=== PATIENT | male | born 1935 | race Caucasian/White ===

== ENCOUNTER 2018-08-29 08:55 | Inpatient (IN) | payer MEDICARE, BC ==
[~2018-08-29] VITALS: Ht 172.7 cm; Wt 65.8 kg
[2018-08-29] MEDS ORDERED: ALBUTEROL 0.5% (NEB) 2.5 MG/0.5 ML AMP INH STA (09:14)
[2018-08-29] MEDS ORDERED: IPRATROPIUM (NEB) 0.5 MG/2.5 ML AMP INH STA ×2 (09:14→11:05)
[2018-08-29] MEDS ORDERED: SOD CHLORIDE 0.9% 500 ML IV STA (09:14)
--- NOTE | 2018-08-29 09:23 | ERD ---
ER Documentation Chief Complaint Chief Complaint SOB/WEAKNESS X 1 WEEK HPI This is a very pleasant 83-year-old male with a past medical history of cardia myopathy. The patient for the past week has felt short of breath. The shortne ss of breath is present at rest and worse when he lies supine. He has been experiencing paroxysmal nocturnal dyspnea. He has had a nonproductive cough. He denies any swelling of his lower extremities. The patient has a defibrillator and is on Coumadin. He denies any hemoptysis hematemesis or me lanotic stools. He has no chest pain. He denies any recent travel or prolonged immobilization. He denies any recent hospitalizations. He also indicates for the past 2 weeks he has had multiple episodes of loose watery stools throughout the day that is worse after he eats. He denies any abdominal pain or cramping. ROS All systems reviewed and are negative except as per history of present illness. Medications Home Meds Reported Medications Losartan-Hydrochlorothiazide (Losartan-HCTZ) Unknown Strength Tab, PO DAILY, TAB PT ONLY KNOW THE HCTZ IS 12.5 BUT NOT WHAT THE MG OF LOSARTAN IS 08/29/18 Magnesium Oxide (Magnesium) 250 Mg Tablet, 250 MG PO DAILY, TAB 08/29/18 Multivit-Min/FA/Lycopen/Lutein (Centrum Silver Men Tablet) 1 Each Tablet, 1 EACH PO DAILY, TAB 08/29/18 Vitamin B Complex (Super B-50 Complex) 1 Each Capsule, 1 EACH PO DAILY, CAP 08/29/18 Levothyroxine Sodium* (Levoxyl*) 75 Mcg Tablet, 75 MCG PO BEFORE BREAKFAST, #30 TAB 08/29/18 Warfarin Sodium* (Coumadin*) 2 Mg Tablet, 2 MG PO MON,FRI, TAB 08/29/18 Warfarin Sodium* (Coumadin*) 1 Mg Tablet, 1 MG PO SUN,TUE,WED,THUR,SAT, TAB 08/29/18 Lovastatin (Lovastatin) 40 Mg Tablet, 40 MG PO HS, TAB 08/29/18 Allopurinol* (Allopurinol*) 300 Mg Tablet, 300 MG PO DAILY, TAB 08/29/18 Potassium Chloride* (K-Dur*) 10 Meq Tab.prt.sr, 10 MEQ PO DAILY, TAB 08/29/18 Carvedilol* (Carvedilol*) 25 Mg Tablet, 25 MG PO TID, #60 TAB 08/29/18 Allergies Allergies: Coded Allergies: No Known Allergy (Verified , 08/29/18) Physical Exam Vitals Vital Signs Date Temp Pulse Resp B/P (MAP) Pulse Ox O2 O2 Flow FiO2 Time Delivery Rate 08/29/18 98 20 97 21 11:24 08/29/18 95 20 98 21 09:44 08/29/18 98.1 99 22 127/62 99 08:58 (83) Physical Exam Constitutional:Well-developed. Well-nourished. HEENT:Normocephalic. Atraumatic.Pupils were equal round reactive to light. Moist mucous membranes.No tonsillar exudates. Neck: No nuchal rigidity. No lymphadenopathy. No posterior cervical spine tenderness or step-offs. Respiratory: Using accessory muscles of respiration.Lungs were clear to auscultation bilaterally. Bilateral rhonchi. No rales. No wheezing. Cardiovascular: Regular rate regular rhythm.No murmurs. No rubs were appreciated.S1, S2 normal. Distal pulses are palpable 2+ bilaterally. GI: Abdomen was soft. Nontender. Non Distended. No pulsatile abdominal masses or bruits. No rebound. No guarding. Bowel sounds were present and normal. Muscle skeletal: Full range of motion of both the upper and lower extremities bilaterally.Normal muscle tone.No assymetrical calf tenderness or swelling. Skin: No petechia, no purpura. No lesions on the palms or the soles of the feet. No maculopapular rash. NEURO: Patient was alert, awake, orientated x3.No facial droop. Gait observed and normal with no ataxia.Speech had regular rate and rhythm. No focal neurological deficits. Result Diagram: 08/29/18 0908/29/18 1050 Results 24 hrs Laboratory Tests Test 08/29/18 09:25 08/29/18 09:26 08/29/18 10:50 Urine Color TOBY Urine Clarity SLIGHTLY CLOUDY Urine pH 5.0 Urine Specific [place] 1.020 Urine Ketones NEGATIVE mg/dL Urine Nitrite NEGATIVE mg/dL Urine Bilirubin NEGATIVE mg/dL Urine Urobilinogen 1+ mg/dL Urine Leukocyte Esterase NEGATIVE Clarence/ul Urine Microscopic RBC 3 /HPF Urine Microscopic WBC 5 /HPF Urine Bacteria FEW /HPF Urine Mucus FEW /HPF Urine Hemoglobin NEGATIVE mg/dL Urine Glucose NEGATIVE mg/dL Urine Total Protein 1+ mg/dl White Blood Count 4.9 10^3/ul Red Blood Count 3.89 10^6/ul Hemoglobin 12.3 g/dl Hematocrit 36.2 % Mean Corpuscular Volume 93.1 fl Mean Corpuscular Hemoglobin 31.6 pg Mean Corpuscular 34.0 g/dl Hemoglobin Concent Red Cell Distribution Width 15.6 % Platelet Count 181 10^3/UL Mean Platelet Volume 11.6 fl Immature Granulocytes % 0.200 % Neutrophils % 77.0 % Lymphocytes % 13.0 % Monocytes % 8.4 % Eosinophils % 1.0 % Basophils % 0.4 % Nucleated Red Blood Cells % 0.0 /100WBC Immature Granulocytes # 0.010 10^3/ul Neutrophils # 3.7 10^3/ul Lymphocytes # 0.6 10^3/ul Monocytes # 0.4 10^3/ul Eosinophils # 0.1 10^3/ul Basophils # 0.0 10^3/ul Nucleated Red Blood Cells # 0.0 10^3/ul Prothrombin Time 27.8 Sec Prothrombin Time Ratio 2.2 INR International 2.59 Normalized Ratio Activated Partial Thromboplast 38.4 Sec Time Sodium Level 138 mmol/L Potassium Level 4.5 mmol/L Chloride Level 104 mmol/L Carbon Dioxide Level 25 mmol/L Anion Gap 9 Blood Urea Nitrogen 26 mg/dl Creatinine 1.64 mg/dl Est Glomerular Filtrat mL/min Rate mL/min Glucose Level 117 mg/dl Calcium Level 8.8 mg/dl Total Bilirubin 1.4 mg/dl Direct Bilirubin 0.00 mg/dl Indirect Bilirubin 1.4 mg/dl Aspartate Amino 33 IU/L Transf (AST/SGOT) Alanine 29 IU/L Aminotransferase (ALT/SGPT) Alkaline Phosphatase 81 IU/L Troponin I 0.022 ng/ml B-Type Natriuretic Peptide 79362 PG/ML Total Protein 6.9 g/dl Albumin 3.9 g/dl Globulin 3.00 g/dl Albumin/Globulin Ratio 1.30 Amylase Level 134 U/L Lipase 178 U/L Current Medications Medications Dose Sig/[place] Start Time Status Last (Trade) Ordered Route PRN Stop Time Admin Dose Reason Admin Sodium 500 ml @ Q1H STAT 08/29/18 DC 08/29/18 Chloride 500 mls/hr IV 09:14 09:41 08/29/18 10:13 Albuterol 5 mg ONCE STAT 08/29/18 DC 08/29/18 (Proventil INH 09:14 09:41 0.5% (Neb)) 08/29/18 09:18 Ipratropium 1 mg ONCE STAT 08/29/18 DC 08/29/18 [place] INH 09:14 09:41 (Atrovent 08/29/18 09:18 0.02% (Neb)) Benzonatate 100 mg ONCE ONCE 08/29/18 DC (Tessalon) PO 11:30 08/29/18 11:31 5 mg ONCE STAT 08/29/18 DC 08/29/18 Levalbuterol INH 11:05 11:19 (Xopenex 08/29/18 11:08 Neb) Ipratropium 1 mg ONCE STAT 08/29/18 DC 08/29/18 [place] INH 11:05 11:18 (Atrovent 08/29/18 11:08 0.02% (Neb)) Ondansetron 4 mg ER BRIDGE 08/29/18 HCl (Zofran PRN IV 13:30 Inj) NAUSEA/VOMITI 08/30/18 13:29 NG 650 mg ER BRIDGE 08/29/18 Acetaminophen PRN PO 13:30 (Tylenol .MILD PAIN 08/30/18 13:29 Tab) 1-3 OR TEMP Procedures/MDM The patient presented to the emergency department with shortness of breath. My differential diagnosis included but was not limited to upper airway obstruction, CHF, pulmonary embolism, cardiac ischemia, pneumonia, pneumothorax, anemia, drug overdose, pulmonary edema, COPD or asthma. 12 Lead EKG tracing ordered and reviewed by myself showed: Irregular regular rhythm of 100 bpm and no arrhythmia. TX interval not appreciated and appeared to be atrial fibrillation with a left bundle branch block QRS duration normal. No ST segment elevation No ST segment depression. No changes consistent with acute ischemia. 1 view chest radiograph reviewed by myself showed cardiomegaly with a dual-lead pacemaker. The patient's BNP was significantly elevated at 19,000. I indicated to the family that I did feel the patient required admission to the hospital for possible new onset congestive heart failure and atrial fibrillation. The patient will be admitted to the hospitalist Dr. Moses. Critical Care: Time: 45 minutes Treatments/Evaluations: Close monitoring and treatment of unstable vital signs, cardiorespiratory, and neurologic status, while maintaining tight balance of fluid, respiratory, and cardiac interventions. Time does not include performing any of the above billable procedures. Departure Diagnosis: Primary Impression: CHF (congestive heart failure) Heart failure type: unspecified Heart failure chronicity: acute Qualified Codes: I50.9 - Heart failure, unspecified Additional Impression: Atrial fibrillation by electrocardiography Condition: Serious GAVIOTA CARRILLO MD August 29, 2018 09:23
[2018-08-29] MEDS ORDERED: CARV25TA79 PO (09:49)
[2018-08-29] MEDS ORDERED: POTA10TA37 PO (09:49)
[2018-08-29] MEDS ORDERED: ALLO300T2 PO (09:50)
[2018-08-29] MEDS ORDERED: MEVA40 PO (09:51)
[2018-08-29] MEDS ORDERED: WARF1TAB PO (09:52)
[2018-08-29] MEDS ORDERED: WARF2TAB PO (09:52)
[2018-08-29] MEDS ORDERED: VITA1CAP7 PO (09:53)
[2018-08-29] MEDS ORDERED: LEVO75TA65 PO (09:53)
[2018-08-29] MEDS ORDERED: MULT-896 PO (09:54)
[2018-08-29] MEDS ORDERED: MAGN250T10 PO (09:54)
[2018-08-29] MEDS ORDERED: LOSA1TAB22 PO (10:01)
[2018-08-29] MEDS ORDERED: LEVALBUTEROL (NEB) 1.25 MG/0.5 ML AMP INH STA (11:05)
[2018-08-29] MEDS ORDERED: BENZONATATE 100 MG CAP PO ONE (11:30)
[2018-08-29] MEDS ORDERED: ONDANSETRON 4 MG INJ IV PRN ×2 (13:30→14:30)
[2018-08-29] MEDS ORDERED: ACETAMINOPHEN 325 MG TAB PO PRN ×2 (13:30→14:30)
--- NOTE | 2018-08-29 14:27 | HP ---
Date/Time of Note Date/Time of Note DATE: 08/29/18 TIME: 14:19 Assessment/Plan VTE Prophylaxis Pharmacological prophylaxis: warfarin tx Lines/Catheters IV Catheter Type (from [facility] [place] Assessment/Plan Hospital Course 1. Acute respiratory distress with decreased functional status BNP is elevated in setting of renal failure Chest x-ray with no significant findings, physical exam show clear lungs Follow-up on 2D echo Cardiology consultation obtained 2. History of CHF/cardiomyopathy status post AICD in 2006 Patient reports that the device is [employer] and was recently interrogated but family is requesting another interrogation Follow-up echo Cardiology consultation obtained 3. Acute versus chronic kidney disease Baseline creatinine unknown Nephrology consultation Hold olmesartan 4. Hypertension Resume home Coreg, hold home losartan and HCTZ 5. History of A. fib Resume home Coumadin Prophylaxis: On Coumadin Result Diagram: 08/29/18 0926 08/29/18 1050 Results 24hrs Laboratory Tests Test 08/29/18 09:25 08/29/18 09:26 08/29/18 10:50 Urine Color TOBY Urine Clarity SLIGHTLY CLOUDY A Urine pH 5.0 Urine Specific [place] 1.020 Urine Ketones NEGATIVE Urine Nitrite NEGATIVE Urine Bilirubin NEGATIVE Urine Urobilinogen 1+ H Urine Leukocyte Esterase NEGATIVE Urine Microscopic RBC 3 Urine Microscopic WBC 5 Urine Bacteria FEW A Urine Mucus FEW A Urine Hemoglobin NEGATIVE Urine Glucose NEGATIVE Urine Total Protein 1+ H White Blood Count 4.9 Red Blood Count 3.89 L Hemoglobin 12.3 L Hematocrit 36.2 L Mean Corpuscular Volume 93.1 Mean Corpuscular Hemoglobin 31.6 Mean Corpuscular 34.0 Hemoglobin Concent Red Cell Distribution Width 15.6 H Platelet Count 181 Mean Platelet Volume 11.6 H Immature Granulocytes % 0.200 Neutrophils % 77.0 Lymphocytes % 13.0 L Monocytes % 8.4 Eosinophils % 1.0 Basophils % 0.4 Nucleated Red Blood Cells % 0.0 Immature Granulocytes # 0.010 Neutrophils # 3.7 Lymphocytes # 0.6 L Monocytes # 0.4 Eosinophils # 0.1 Basophils # 0.0 Nucleated Red Blood Cells # 0.0 Prothrombin Time 27.8 H Prothrombin Time Ratio 2.2 INR International 2.59 Normalized Ratio Activated Partial Thromboplast 38.4 H Time Sodium Level 138 Potassium Level 4.5 Chloride Level 104 Carbon Dioxide Level 25 Anion Gap 9 Blood Urea Nitrogen 26 H Creatinine 1.64 H Est Glomerular Filtrat Rate mL/min Glucose Level 117 Calcium Level 8.8 Total Bilirubin 1.4 H Direct Bilirubin 0.00 Indirect Bilirubin 1.4 H Aspartate Amino 33 Transf (AST/SGOT) Alanine 29 Aminotransferase (ALT/SGPT) Alkaline Phosphatase 81 Troponin I 0.022 B-Type Natriuretic Peptide 13274 H Total Protein 6.9 Albumin 3.9 Globulin 3.00 Albumin/Globulin Ratio 1.30 Amylase Level 134 H Lipase 178 HPI/ROS Admit Date/Time Admit Date/Time August 29, 2018 Hx of Present Illness Patient is an 83-year-old male history of idiopathic cardiomyopathy status post AICD in 2006, A. fib, hypertension and hypothyroidism. Patient presents with progressive shortness of breath over the past month with decreased functional status and dyspnea with only mild exertion. Patient used to be on Lasix in the past but has not required diuretic therapy for many years now. In the ER BNP is slightly elevated in the setting of renal failure, chest x-ray is negative. Patient denies any chest pain. Family states that AICD was recently interrogated with no issues. Patient does follow-up with a hospice clinical marketer as an outpatient. ROS Constitutional: no complaints, improved Eyes: no complaints ENT: no complaints Respiratory: shortness of breath Cardiovascular: no complaints Gastrointestinal: no complaints Genitourinary: no complaints Musculoskeletal: no complaints Skin: no complaints Neurologic: no complaints Endocrine: no complaints Lymphatic: no complaints Psychological: no complaints, nl mood/affect Immunologic: no complaints PMH/Family/Social Past Medical History As per [facility] Medications Current Medications Ondansetron HCl (Zofran Inj) 4 mg ER BRIDGE PRN IV NAUSEA/VOMITING; Start 08/29/18 at 13:30; Stop 08/30/18 at 13:29 Acetaminophen (Tylenol Tab) 650 mg ER BRIDGE PRN PO .MILD PAIN 1-3 OR TEMP; Start 08/29/18 at 13:30; Stop 08/30/18 at 13:29 Coded Allergies: No Known Allergy (Verified , 08/29/18) Past Surgical History AICD placement Family History Significant Family History: no pertinent family hx Social History Alcohol Use: rarely Smoking Status: Never smoker Drug Use: none Exam/Review of Systems Vital Signs Vitals Vital Signs Date Temp Pulse Resp B/P (MAP) Pulse Ox O2 O2 Flow FiO2 Time Delivery Rate 5/25/19 102 18 112/70 97 Room Air 13:57 (84) 08/29/18 21 11:24 08/29/18 2.0 09:30 08/29/18 98.1 08:58 Exam Constitutional: alert, oriented Respiratory: clear to auscultation Cardiovascular: regular rate and rhythm Gastrointestinal: soft; No distended Musculoskeletal: nl extremities to inspection DEBBIE BENJAMIN August 29, 2018 14:27
[2018-08-29] MEDS ORDERED: DOCUSATE SODIUM 100 MG CAP PO PRN (14:30)
[2018-08-29] MEDS ORDERED: ZOLPIDEM 5 MG TAB PO PRN (14:30)
[2018-08-29] MEDS ORDERED: ALBUTEROL/IPRATROPIUM (NEB) 3 ML AMP HHN PRN (14:30)
[2018-08-29] MEDS ORDERED: hydrALAzine 20 MG INJ IV PRN (14:30)
[2018-08-29] MEDS ORDERED: NACL 0.9% 3 ML SYG IV SCH (14:30)
[2018-08-29] MEDS ORDERED: morphine 2 MG INJ IV PRN (14:30)
[2018-08-29] MEDS ORDERED: HYDROCODONE/APAP (5/325) TAB PO PRN (14:30)
[2018-08-29] MEDS: FUROSEMIDE 20 MG INJ IV SCH (15:03)
[2018-08-29 15:46] VITALS: PULSE 119
[2018-08-29 15:51] VITALS: BP 116/65; PULSE 108; RESP 20
[2018-08-29 15:55] VITALS: Ht 172.7 cm; Wt 65.8 kg
[2018-08-29 16:00] VITALS: PULSE 100
[2018-08-29] MEDS ORDERED: PROMETHAZINE (1.25 MG/ML) 5 ML CUP PO PRN (16:30)
[2018-08-29 20:00] VITALS: BP 127/81; PULSE 94; PULSE 95; RESP 19
[2018-08-29] MEDS: ATORVASTATIN 10 MG TAB PO SCH (20:22)
[2018-08-30] VITALS (12 sets, daily range): BP systolic 91–132; BP diastolic 55–77; PULSE 79–114; RESP 18–20
--- NOTE | 2018-08-30 00:52 | CONS ---
DATE OF ADMISSION: 08/29/2018 DATE OF CONSULTATION: TYPE OF CONSULTATION: Nephrology. REASON FOR CONSULTATION: Acute kidney injury, possible CKD. PHYSICIAN REQUESTING CONSULT: Asia Moses MD HISTORY OF PRESENT ILLNESS: This is an 83-year-old male with a past medical history of CKD with unkn own baseline creatinine, history of cardiomyopathy, status post AICD placement, history of hypertensi on, hypothyroidism, who presents to [facility] with progressive shortness of breath and with asthma. The patient states that he used to be on Lasix in the past; however, the patient h as not been on diuretic therapy for a period of time. The patient states over the past several weeks he has been having increasing shortness of breath. The patient upon arrival to emergency room had a chest x-ray which showed cardiomegaly, no pneumonia or failure. The patient in the emergency room n oted to have elevated BNP. The patient was given diuretic therapy. In terms of patient's renal history, the patient states that he had a recent history of chronic kidne y disease, does not know his baseline EGFR or creatinine. The patient states that he was told it was mild. He denies any hemoptysis, hematemesis or hematochezia. PAST MEDICAL HISTORY: As stated above, history of CKD, history of cardiomyopathy, history of hyperte nsion, history of AFib, history of hypothyroidism. FAMILY HISTORY: No family history of kidney disease. SOCIAL HISTORY: Does not drink, smoke or do drugs. MEDICATIONS: The patient's medications have been reviewed. REVIEW OF SYSTEMS: A 14-point review of systems was conducted. Pertinent positives stated above. PHYSICAL EXAMINATION: VITAL SIGNS: Blood pressure 116/65, respiratory rate 20, pulse 108, temperature 98.4. HEENT: Head is normocephalic. NECK: Supple. HEART: Regular rate. LUNGS: Show diminished breath sounds at the base. ABDOMEN: Soft, nontender to palpation without rebound or guarding. EXTREMITIES: Negative for clubbing, cyanosis, no edema. DERMATOLOGIC: No rashes. MUSCULOSKELETAL: No joint effusion. NEUROLOGIC: No change in exam. MEDICATIONS: The patient's medications have been reviewed. LABORATORY DATA: Has been reviewed. IMAGING STUDIES: Have been reviewed. ASSESSMENT AND PLAN: This is an 83-year-old male who presents with: 1. Renal failure, possible acute kidney injury on top of chronic kidney versus chronic kidney diseas e. The patient's baseline renal function is unknown. Possible etiology of acute kidney injury maybe secondary to cardiorenal syndrome, hemodynamics. Urinalysis was reviewed, bland, no active sediment . Low suspicion for acute glomerulonephritis or vasculitis. Recommendations to continue current craig atment plan. Continue current diuretic therapy, monitor renal function and electrolytes closely. Ot herwise, continue current supportive care, renally dose all meds, avoid nephrotoxins. 2. Decompensated heart failure. The patient is noted positive JVD on exam. Would continue current diuretic regimen. Monitor closely. Will check serial troponins to rule out acute coronary syndrome. Check a 2D echo. 3. Mild anemia. Monitor hemoglobin and hematocrit levels. 4. Mineral bone disorder, monitor calcium and phosphorus levels. 5. Acute respiratory failure secondary to congestive heart failure exacerbation. Continue current d iuretic regimen, monitor closely. 6. History of cardiomyopathy, status post automatic implantable cardioverter-defibrillator placement . Continue to monitor. Follow up with cardiology. 7. Hypertension. Continue current blood pressure regimen. 8. History of atrial fibrillation. Continue Coumadin. Thank you, Dr. Moses, for this interesting consult. It will be a pleasure to follow patient with oh ramirez throughout the hospital course. Dictated By: FELIX RUBIN DO NR/NTS Conf#: [id number] DID#: [id number]
[2018-08-30] MEDS: LEVOTHYROXINE 75 MCG TAB PO SCH (06:27)
[2018-08-30] MEDS: MULTIVITAMINS/MINERALS TAB PO SCH (08:52)
[2018-08-30] MEDS: VITAMIN B COMPLEX/VIT C CAP PO SCH (08:52)
[2018-08-30] MEDS: MAGNESIUM OXIDE 400 MG TAB PO SCH (08:52)
[2018-08-30] MEDS: POTASSIUM CHLORIDE (SR) 10 MEQ TAB PO SCH (08:52)
[2018-08-30] MEDS: FUROSEMIDE 20 MG INJ IV SCH (08:53)
--- NOTE | 2018-08-30 14:10 | CONS ---
Assessment/Plan Assessment/Plan Hospital Course (Demo Recall) Acute no chronic systolic heart failure- increased cough, agarwal, and fatigue. cxr without sig pulm edema however, cont gentle diuresis/rate control. - lasix, increase to 40mg iv daily (given extra 20 iv today) - cont coreg - cont home losartan/hctz (watch electrolytes/cr) - dig load. renal dosing for added rate control/chf Afib - chronic - on coumadin, goal inr 2-3 - cont coreg - add digoxin iv laod h/o VT- 2012, no recent episode s/p ICD - cont amio 100mg 3x/week - tele monitoring while in house CKD- chronic baseline cr 1.4 to 1.5 Consultation Date/Type/Reason Admit Date/Time August 29, 2018 Date of Consultation: August 30, 2018 Type of Consult Cardiology Reason for Consultation CHF Requesting Provider: DEBBIE BENJAMIN Date/Time of Note DATE: 08/30/18 TIME: 14:10 Hx of Present Illness 83 y.o. man with h/o non ischemic CM s/p ICD, chornic systolic heart failure, CKD HTN, who presents to [facility] with increase dyspnea. per family, pt with gi illness a few weeks ago and has progressive dyspnea since. also loose stools, no fevers, chills, sweats. sob walking to bathroom. no pnd, orhtopnea, edema. tolerating po, no n/v. no palp, dizziness, fainting. PHYSICAL EXAMINATION: VITAL SIGNS: Blood pressure 116/65, respiratory rate 20, pulse 108, temperature 98.4. HEENT: Head is normocephalic. NECK: Supple. HEART: Regular rate. LUNGS: Show diminished breath sounds at the base. ABDOMEN: Soft, nontender to palpation without rebound or guarding. EXTREMITIES: Negative for clubbing, cyanosis, no edema. DERMATOLOGIC: No rashes. MUSCULOSKELETAL: No joint effusion. NEUROLOGIC: No change in exam. MEDICATIONS: The patient's medications have been reviewed. LABORATORY DATA: Has been reviewed. IMAGING STUDIES: Have been reviewed. ASSESSMENT AND PLAN: This is an 83-year-old male who presents with: 1. Renal failure, possible acute kidney injury on top of chronic kidney versus chronic kidney disease. The patient's baseline renal function is unknown. Possible etiology of acute kidney injury maybe secondary to cardiorenal syndrome, hemodynamics. Urinalysis was reviewed, bland, no active sediment. Lo w suspicion for acute glomerulonephritis or vasculitis. Recommendations to continue current treatment plan. Continue current diuretic therapy, monitor renal function and electrolytes closely. Otherwise, continue current supportive care, renally dose all meds, avoid nephrotoxins. 2. Decompensated heart failure. The patient is noted positive JVD on exam. Would continue current diuretic regimen. Monitor closely. Will check serial troponins to rule out acute coronary syndrome. Check a 2D echo. 3. Mild anemia. Monitor hemoglobin and hematocrit levels. 4. Mineral bone disorder, monitor calcium and phosphorus levels. 5. Acute respiratory failure secondary to congestive heart failure ex acerbation. Continue current diuretic regimen, monitor closely. 6. History of cardiomyopathy, status post automatic implantable cardioverter- defibrillator placement. Continue to monitor. Follow up with cardiology. 7. Hypertension. Continue current blood pressure regimen. 8. History of atrial fibrillation. Continue Coumadin. all other systems negative Past Medical History NICM s/p ICD history of CKD, hypertension, AFib, hypothyroidism. Home Meds Active Scripts Furosemide (Lasix) 20 Mg Tab, 20 MG PO BID for 60 Days, #120 TAB Prov:ROMINA CHEUNG MD 09/01/18 Losartan Potassium* (Losartan Potassium*) 50 Mg Tablet, 50 MG PO DAILY for 30 Days, #30 TAB Prov:ROMINA CHEUNG MD 09/01/18 Reported Medications Magnesium Oxide (Magnesium) 250 Mg Tablet, 250 MG PO DAILY, TAB 08/29/18 Levothyroxine Sodium* (Levoxyl*) 75 Mcg Tablet, 75 MCG PO BEFORE BREAKFAST, #30 TAB 08/29/18 Warfarin Sodium* (Coumadin*) 2 Mg Tablet, 2 MG PO MON,FRI, TAB 08/29/18 Warfarin Sodium* (Coumadin*) 1 Mg Tablet, 1 MG PO SUN,TUE,WED,THUR,SAT, TAB 08/29/18 Lovastatin (Lovastatin) 40 Mg Tablet, 40 MG PO HS, TAB 08/29/18 Allopurinol* (Allopurinol*) 300 Mg Tablet, 300 MG PO DAILY, TAB 08/29/18 Potassium Chloride* (K-Dur*) 10 Meq Tab.prt.sr, 10 MEQ PO DAILY, TAB 08/29/18 Carvedilol* (Carvedilol*) 25 Mg Tablet, 25 MG PO TID, #60 TAB 08/29/18 Discontinued Reported Medications Losartan-Hydrochlorothiazide (Losartan-HCTZ) Unknown Strength Tab, PO DAILY, TAB PT ONLY KNOW THE HCTZ IS 12.5 BUT NOT WHAT THE MG OF LOSARTAN IS 08/29/18 Multivit-Min/FA/Lycopen/Lutein (Centrum Silver Men Tablet) 1 Each Tablet, 1 EACH PO DAILY, TAB 08/29/18 Vitamin B Complex (Super B-50 Complex) 1 Each Capsule, 1 EACH PO DAILY, CAP 08/29/18 Medications Current Medications IV Flush (NS 3 ml) 3 ml PER PROTOCOL IV ; Start 08/29/18 at 14:30 Ondansetron HCl (Zofran Inj) 4 mg Q6H PRN IV NAUSEA/VOMITING; Start 08/29/18 at 14:30 Acetaminophen (Tylenol Tab) 650 mg Q6H PRN PO .PAIN 1-3 OR TEMP; Start 08/29/18 at 14:30 Acetaminophen/ Hydrocodone Bitart ([place] (5/325)) 1 tab Q6H PRN PO .MOD PAIN 4- 6; Start 08/29/18 at 14:30 Morphine Sulfate (morphine) 2 mg Q4H PRN IV .SEVERE PAIN 7-10; Start 08/29/18 at 14:30 Docusate Sodium (Colace) 100 mg Q12H PRN PO .CONSTIPATION; Start 08/29/18 at 14:30 Zolpidem Tartrate (Ambien) 5 mg QHS PRN PO .INSOMNIA Last administered on 08/29/18at 22:01; Admin Dose 5 MG; Start 08/29/18 at 14:30 Carvedilol (Coreg) 25 mg TID PO Last administered on 08/30/18at 13:28; Admin Dose 25 MG; Start 08/29/18 at 21:00 Levothyroxine Sodium (Synthroid) 75 mcg BEFORE BREAKFAST PO Last administered on 08/30/18at 06:27; Admin Dose 75 MCG; Start 08/30/18 at 07:00 Potassium Chloride (Klor-Con 10) 10 meq DAILY PO Last administered on 08/30/18at 08:52; Admin Dose 10 MEQ; Start 08/30/18 at 09:00 Warfarin Sodium (Coumadin) 1 mg DAILY@1700 PO ; Start 08/30/18 at 17:00 Atorvastatin Calcium (Lipitor) 10 mg HS PO Last administered on 08/29/18at 20:22; Admin Dose 10 MG; Start 08/29/18 at 21:00 Magnesium Oxide (Mag-Ox 400) 400 mg DAILY PO Last administered on 08/30/18 08:52; Admin Dose 400 MG; Start 08/30/18 at 09:00 Multivitamins/ Minerals (Theragran-M) 1 tab DAILY PO Last administered on 08/30/18at 08:52; Admin Dose 1 TAB; Start 08/30/18 at 09:00 Vitamin B Complex/ Vitamin C (Berocca) 1 cap DAILY PO Last administered on 08/30/18at 08:52; Admin Dose 1 CAP; Start 08/30/18 at 09:00 Furosemide (Lasix) 20 mg DAILY IV Last administered on 08/30/18at 08:53; Admin D ose 20 MG; Start 08/29/18 at 14:30 Albuterol/ Ipratropium (Duoneb) 3 ml Q4H RESP THERAPY PRN HHN SHORTNESS OF BREATH; Start 08/29/18 at 14:30 Hydralazine HCl (Apresoline) 10 mg Q4H PRN IV SBP>170; Start 08/29/18 at 14:30 Promethazine HCl (Phenergan Liq) 6.25 mg Q4H PRN PO COUGH Last administered on 08/29/18at 18:53; Admin Dose 6.25 MG; Start 08/29/18 at 16:30 Allergies: Coded Allergies: No Known Allergy (Verified , 08/29/18) Family History Significant Family History: no pertinent family hx Social History Alcohol Use: none Smoking Status: Never smoker Drug Use: none Exam/Review of Systems Exam Vitals Vital Signs Date Temp Pulse Resp B/P (MAP) Pulse Ox O2 O2 Flow FiO2 Time Delivery Rate 08/30/18 84 110/70 13:26 (83) 08/30/18 97.6 20 94 Room Air 11:44 08/29/18 21 11:24 08/29/18 2.0 09:30 Intake and Output 08/29/18 08/29/18 08/30/18 1515:00 23:00 07:00 IntakeIntake Total 450 ml BalanceBalance 450 ml Exam GEN: in bed, alert oriented HEENT: NC/AT, + JVD, HEART: RRR, nls1s2, ii/vi systolic LUNGS: CTA a/p. ABDOMEN: Soft nt/nd non distended EXTREMITIES: Negative for clubbing, cyanosis, no edema. DERMATOLOGIC: No rashes. MUSCULOSKELETAL: No joint effusion. NEUROLOGIC: Non focal Results Result Diagram: 08/30/18 0516 08/30/18 0516 Results 24hrs Laboratory Tests Test 08/30/18 05:16 White Blood Count 4.6 L Red Blood Count 3.58 L Hemoglobin 11.2 L Hematocrit 33.2 L Mean Corpuscular Volume 92.7 Mean Corpuscular Hemoglobin 31.3 Mean Corpuscular Hemoglobin Concent 33.7 Red Cell Distribution Width 15.3 H Platelet Count 133 #L Mean Platelet Volume 10.7 H Immature Granulocytes % 0.200 Neutrophils % 67.7 Lymphocytes % 16.6 Monocytes % 12.7 H Eosinophils % 2.6 Basophils % 0.2 Nucleated Red Blood Cells % 0.0 Immature Granulocytes # 0.010 Neutrophils # 3.1 Lymphocytes # 0.8 Monocytes # 0.6 Eosinophils # 0.1 Basophils # 0.0 Nucleated Red Blood Cells # 0.0 Sodium Level 136 Potassium Level 4.0 Chloride Level 103 Carbon Dioxide Level 25 Anion Gap 8 Blood Urea Nitrogen 27 H Creatinine 1.66 H Est Glomerular Filtrat Rate mL/min Glucose Level 96 Hemoglobin A1c 5.7 Calcium Level 8.7 Phosphorus Level 4.4 Magnesium Level 1.9 Total Bilirubin 1.2 Direct Bilirubin 0.00 Indirect Bilirubin 1.2 H Aspartate Amino Transf (AST/SGOT) 29 Alanine Aminotransferase (ALT/SGPT) 33 Alkaline Phosphatase 69 Troponin I 0.035 B-Type Natriuretic Peptide 11130 H Total Protein 6.0 L Albumin 3.2 L Globulin 2.80 Albumin/Globulin Ratio 1.14 Triglycerides Level 146 Cholesterol Level 104 LDL Cholesterol, Calculated 37 HDL Cholesterol 38 Cholesterol/HDL Ratio 2.7 Free Thyroxine Index 3.71 Thyroxine (T4) 6.7 Triiodothyronine (T3) Uptake 55.4 H Imaging Imaging cxr report reviewed ekg: afib with paced rhythm Medications Medication Current Medications IV Flush (NS 3 ml) 3 ml PER PROTOCOL IV ; Start 08/29/18 at 14:30 Ondansetron HCl (Zofran Inj) 4 mg Q6H PRN IV NAUSEA/VOMITING; Start 08/29/18 at 14:30 Acetaminophen (Tylenol Tab) 650 mg Q6H PRN PO .PAIN 1-3 OR TEMP; Start 08/29/18 at 14:30 Acetaminophen/ Hydrocodone Bitart ([place] (5/325)) 1 tab Q6H PRN PO .MOD PAIN 4- 6; Start 08/29/18 at 14:30 Morphine Sulfate (morphine) 2 mg Q4H PRN IV .SEVERE PAIN 7-10; Start 08/29/18 at 14:30 Docusate Sodium (Colace) 100 mg Q12H PRN PO .CONSTIPATION; Start 08/29/18 at 14:30 Zolpidem Tartrate (Ambien) 5 mg QHS PRN PO .INSOMNIA Last administered on 08/29/18at 22:01; Admin Dose 5 MG; Start 08/29/18 at 14:30 Carvedilol (Coreg) 25 mg TID PO Last administered on 08/30/18at 13:28; Admin Dose 25 MG; Start 08/29/18 at 21:00 Levothyroxine Sodium (Synthroid) 75 mcg BEFORE BREAKFAST PO Last administered on 08/30/18at 06:27; Admin Dose 75 MCG; Start 08/30/18 at 07:00 Potassium Chloride (Klor-Con 10) 10 meq DAILY PO Last administered on 08/30/18at 08:52; Admin Dose 10 MEQ; Start 08/30/18 at 09:00 Warfarin Sodium (Coumadin) 1 mg DAILY@1700 PO ; Start 08/30/18 at 17:00 Atorvastatin Calcium (Lipitor) 10 mg HS PO Last administered on 08/29/18at 20: 22; Admin Dose 10 MG; Start 08/29/18 at 21:00 Magnesium Oxide (Mag-Ox 400) 400 mg DAILY PO Last administered on 08/30/18 08:52; Admin Dose 400 MG; Start 08/30/18 at 09:00 Multivitamins/ Minerals (Theragran-M) 1 tab DAILY PO Last administered on 08/30/18 08:52; Admin Dose 1 TAB; Start 08/30/18 at 09:00 Vitamin B Complex/ Vitamin C (Berocca) 1 cap DAILY PO Last administered on 08/30/18at 08:52; Admin Dose 1 CAP; Start 08/30/18 at 09:00 Furosemide (Lasix) 20 mg DAILY IV Last administered on 08/30/18at 08:53; Admin Dose 20 MG; Start 08/29/18 at 14:30 Albuterol/ Ipratropium (Duoneb) 3 ml Q4H RESP THERAPY PRN HHN SHORTNESS OF BREATH; Start 08/29/18 at 14:30 Hydralazine HCl (Apresoline) 10 mg Q4H PRN IV SBP>170; Start 08/29/18 at 14:30 Promethazine HCl (Phenergan Liq) 6.25 mg Q4H PRN PO COUGH Last administered on 08/29/18at 18:53; Admin Dose 6.25 MG; Start 08/29/18 at 16:30 JOSELUIS LEACH August 30, 2018 14:10
[2018-08-30] MEDS ORDERED: DIGOXIN 500 MCG INJ IV ONE (15:30)
[2018-08-30] MEDS ORDERED: FUROSEMIDE 20 MG INJ IV ONE (15:30)
--- NOTE | 2018-08-30 16:02 | PN ---
DATE: 08/30/2018 SUBJECTIVE: The patient is stable. No events overnight. OBJECTIVE: VITAL SIGNS: Blood pressure is 117/77, respirations , pulse 97, temperature 97.6. HEENT: Head is normocephalic. NECK: Supple. HEART: Regular rate. LUNGS: Show diminished breath sounds at the base. ABDOMEN: Soft, nontender to palpation without rebound or guarding. EXTREMITIES: Negative for clubbing or cyanosis. No edema. DERMATOLOGIC: No rashes. MUSCULOSKELETAL: No joint effusion. NEUROLOGIC: No change in exam. MEDICATIONS: The patient's medication have been reviewed. LABORATORY DATA: Has been reviewed. ASSESSMENT AND PLAN: 1. Nonoliguric acute kidney injury on top of chronic kidney disease with unknown baseline creatinine . Etiology of acute kidney injury is possibly due to hemodynamics versus chronic kidney disease. Re nal function has remained stable the last 24 hours. The patient's urinalysis was reviewed. Renal ul trasound is unremarkable. At this point, continue current treatment plans, supportive care, renally dose all meds. Monitor closely on diuretic therapy. 2. Decompensated heart failure. The patient is clinically improving. Current diuretic regimen, we will continue. Follow up 2D echo. 3. Anemia. Monitor hemoglobin and hematocrit levels. 4. Mineral bone disorder. Monitor calcium and phosphorus levels. 5. Acute respiratory failure secondary to congestive heart failure exacerbation, improving. Continu e current diuretic regimen. 6. History of cardiomyopathy and history of ICD placement. 7. Hypertension. Continue current blood pressure regimen. 8. History of atrial fibrillation. Continue Coumadin. Dictated By: FELIX RUBIN DO NR/NTS Conf#: [id number] DID#: [id number] CC: JOSELUIS LEACH MD; DEBBIE BENJAMIN MD;*End*
[2018-08-30] MEDS ORDERED: WARFARIN 1 MG TAB PO SCH (17:00)
[2018-08-30] MEDS: WARFARIN 2 MG TAB PO SCH (17:29)
--- NOTE | 2018-08-30 18:42 | PN ---
Date/Time of Note Date/Time of Note DATE: 08/30/18 TIME: 18:38 Assessment/Plan VTE Prophylaxis Risk score (from Ns)>0 risk: 5 SCD applied (from Ns): Yes Pharmacological prophylaxis: warfarin tx Lines/Catheters IV [facility]ter Type ([facility] Peripheral IV Urinary Cath still in place: No Assessment/Plan Hospital Course 1. Acute respiratory distress with decreased functional status BNP is elevated in setting of renal failure Chest x-ray with no significant findings, physical exam show clear lungs Follow-up on 2D echo Cardiology consultation appreciated, continue diuresis with Lasix 40 mg IV for another day Of note patient is not on Lasix at home, follow-up with cardiology recomm endations as to whether patient needs to be started on Lasix 2. History of CHF/cardiomyopathy status post AICD in 2006 Patient reports that the device is [employer] and was recently interrogated but family is requesting another interrogation Follow-up echo Cardiology consultation appreciated 3. Acute versus chronic kidney disease Creatinine has remained stable Baseline creatinine unknown Nephrology consultation appreciated Hold home losartan 4. History of hypertension BP currently low to normal Resume home Coreg, hold home losartan and HCTZ 5. History of A. fib Resume home Coumadin Prophylaxis: On Coumadin DC planning: Continue diuresis, anticipate DC home tomorrow if cleared by car diology and renal Result Diagram: 08/30/18 0516 08/30/18 0516 Results 24hrs Laboratory Tests Test 08/30/18 05:16 White Blood Count 4.6 L Red Blood Count 3.58 L Hemoglobin 11.2 L Hematocrit 33.2 L Mean Corpuscular Volume 92.7 Mean Corpuscular Hemoglobin 31.3 Mean Corpuscular Hemoglobin Concent 33.7 Red Cell Distribution Width 15.3 H Platelet Count 133 #L Mean Platelet Volume 10.7 H Immature Granulocytes % 0.200 Neutrophils % 67.7 Lymphocytes % 16.6 Monocytes % 12.7 H Eosinophils % 2.6 Basophils % 0.2 Nucleated Red Blood Cells % 0.0 Immature Granulocytes # 0.010 Neutrophils # 3.1 Lymphocytes # 0.8 Monocytes # 0.6 Eosinophils # 0.1 Basophils # 0.0 Nucleated Red Blood Cells # 0.0 Sodium Level 136 Potassium Level 4.0 Chloride Level 103 Carbon Dioxide Level 25 Anion Gap 8 Blood Urea Nitrogen 27 H Creatinine 1.66 H Est Glomerular Filtrat Rate mL/min Glucose Level 96 Hemoglobin A1c 5.7 Calcium Level 8.7 Phosphorus Level 4.4 Magnesium Level 1.9 Total Bilirubin 1.2 Direct Bilirubin 0.00 Indirect Bilirubin 1.2 H Aspartate Amino Transf (AST/SGOT) 29 Alanine Aminotransferase (ALT/SGPT) 33 Alkaline Phosphatase 69 Troponin I 0.035 B-Type Natriuretic Peptide 05958 H Total Protein 6.0 L Albumin 3.2 L Globulin 2.80 Albumin/Globulin Ratio 1.14 Triglycerides Level 146 Cholesterol Level 104 LDL Cholesterol, Calculated 37 HDL Cholesterol 38 Cholesterol/HDL Ratio 2.7 Free Thyroxine Index 3.71 Thyroxine (T4) 6.7 Triiodothyronine (T3) Uptake 55.4 H Subjective 24 Hr Interval Summary Constitutional: no complaints Exam/Review of Systems Exam Vitals Vital Signs Date Temp Pulse Resp B/P (MAP) Pulse Ox O2 O2 Flow FiO2 Time Delivery Rate 08/30/18 79 128/63 17:27 (84) 08/30/18 97.8 18 98 Room Air 16:10 08/29/18 21 11:24 08/29/18 2.0 09:30 Intake and Output 08/29/18 08/29/18 08/30/18 1515:00 23:00 07:00 IntakeIntake Total 450 ml BalanceBalance 450 ml Constitutional: alert, oriented Respiratory: clear to auscultation Cardiovascular: regular rate and rhythm Gastrointestinal: soft; No distended Musculoskeletal: nl extremities to inspection Results Results 24hrs Laboratory Tests Test 08/30/18 05:16 White Blood Count 4.6 L Red Blood Count 3.58 L Hemoglobin 11.2 L Hematocrit 33.2 L Mean Corpuscular Volume 92.7 Mean Corpuscular Hemoglobin 31.3 Mean Corpuscular Hemoglobin Concent 33.7 Red Cell Distribution Width 15.3 H Platelet Count 133 #L Mean Platelet Volume 10.7 H Immature Granulocytes % 0.200 Neutrophils % 67.7 Lymphocytes % 16.6 Monocytes % 12.7 H Eosinophils % 2.6 Basophils % 0.2 Nucleated Red Blood Cells % 0.0 Immature Granulocytes # 0.010 Neutrophils # 3.1 Lymphocytes # 0.8 Monocytes # 0.6 Eosinophils # 0.1 Basophils # 0.0 Nucleated Red Blood Cells # 0.0 Sodium Level 136 Potassium Level 4.0 Chloride Level 103 Carbon Dioxide Level 25 Anion Gap 8 Blood Urea Nitrogen 27 H Creatinine 1.66 H Est Glomerular Filtrat Rate mL/min Glucose Level 96 Hemoglobin A1c 5.7 Calcium Level 8.7 Phosphorus Level 4.4 Magnesium Level 1.9 Total Bilirubin 1.2 Direct Bilirubin 0.00 Indirect Bilirubin 1.2 H Aspartate Amino Transf (AST/SGOT) 29 Alanine Aminotransferase (ALT/SGPT) 33 Alkaline Phosphatase 69 Troponin I 0.035 B-Type Natriuretic Peptide 66670 H Total Protein 6.0 L Albumin 3.2 L Globulin 2.80 Albumin/Globulin Ratio 1.14 Triglycerides Level 146 Cholesterol Level 104 LDL Cholesterol, Calculated 37 HDL Cholesterol 38 Cholesterol/HDL Ratio 2.7 Free Thyroxine Index 3.71 Thyroxine (T4) 6.7 Triiodothyronine (T3) Uptake 55.4 H Medications Medication Current Medications IV Flush (NS 3 ml) 3 ml PER PROTOCOL IV ; Start 08/29/18 at 14:30 Ondansetron HCl (Zofran Inj) 4 mg Q6H PRN IV NAUSEA/VOMITING; Start 08/29/18 at 14:30 Acetaminophen (Tylenol Tab) 650 mg Q6H PRN PO .PAIN 1-3 OR TEMP; Start 08/29/18 at 14:30 Acetaminophen/ Hydrocodone Bitart ([place] (5/325)) 1 tab Q6H PRN PO .MOD PAIN 4- 6; Start 08/29/18 at 14:30 Morphine Sulfate (morphine) 2 mg Q4H PRN IV .SEVERE PAIN 7-10; Start 08/29/18 at 14:30 Docusate Sodium (Colace) 100 mg Q12H PRN PO .CONSTIPATION; Start 08/29/18 at 14:30 Zolpidem Tartrate (Ambien) 5 mg QHS PRN PO .INSOMNIA Last administered on 08/29/18at 22:01; Admin Dose 5 MG; Start 08/29/18 at 14:30 Carvedilol (Coreg) 25 mg TID PO Last administered on 08/30/18at 13:28; Admin Dos e 25 MG; Start 08/29/18 at 21:00 Levothyroxine Sodium (Synthroid) 75 mcg BEFORE BREAKFAST PO Last administered on 08/30/18at 06:27; Admin Dose 75 MCG; Start 08/30/18 at 07:00 Potassium Chloride (Klor-Con 10) 10 meq DAILY PO Last administered on 08/30/18at 08:52; Admin Dose 10 MEQ; Start 08/30/18 at 09:00 Atorvastatin Calcium (Lipitor) 10 mg HS PO Last administered on 08/29/18at 20:22; Admin Dose 10 MG; Start 08/29/18 at 21:00 Magnesium Oxide (Mag-Ox 400) 400 mg DAILY PO Last administered on 08/30/18 08:52; Admin Dose 400 MG; Start 08/30/18 at 09:00 Multivitamins/ Minerals (Theragran-M) 1 tab DAILY PO Last administered on 08/30/18 08:52; Admin Dose 1 TAB; Start 08/30/18 at 09:00 Vitamin B Complex/ Vitamin C (Berocca) 1 cap DAILY PO Last administered on 08/30/18 08:52; Admin Dose 1 CAP; Start 08/30/18 at 09:00 Albuterol/ Ipratropium (Duoneb) 3 ml Q4H RESP THERAPY PRN HHN SHORTNESS OF BREATH; Start 08/29/18 at 14:30 Hydralazine HCl (Apresoline) 10 mg Q4H PRN IV SBP>170; Start 08/29/18 at 14:30 Promethazine HCl (Phenergan Liq) 6.25 mg Q4H PRN PO COUGH Last administered on 08/29/18at 18:53; Admin Dose 6.25 MG; Start 08/29/18 at 16:30 Furosemide (Lasix) 40 mg DAILY IV ; Start 08/31/18 at 09:00 Digoxin (Digoxin) 250 mcg Q6 IV ; Start 08/30/18 at 22:00; Stop 08/31/18 at 08:00 Warfarin Sodium (Coumadin) 1 mg DAILY@1700 PO Last administered on 08/30/18at 17:29; Admin Dose 1 MG; Start 08/30/18 at 17:07 DEBBIE BENJAMIN August 30, 2018 18:42
[2018-08-30] MEDS: ATORVASTATIN 10 MG TAB PO SCH (21:18)
[2018-08-30] MEDS: DIGOXIN 500 MCG INJ IV SCH (21:19)
[2018-08-31] VITALS (10 sets, daily range): BP systolic 127–149; BP diastolic 58–76; PULSE 49–70; RESP 18–20
[2018-08-31] MEDS: LEVOTHYROXINE 75 MCG TAB PO SCH (05:51)
[2018-08-31] MEDS: DIGOXIN 500 MCG INJ IV SCH (05:52)
[2018-08-31] MEDS: MAGNESIUM OXIDE 400 MG TAB PO SCH (08:47)
[2018-08-31] MEDS: MULTIVITAMINS/MINERALS TAB PO SCH (08:48)
[2018-08-31] MEDS: VITAMIN B COMPLEX/VIT C CAP PO SCH (08:48)
[2018-08-31] MEDS: POTASSIUM CHLORIDE (SR) 10 MEQ TAB PO SCH (08:48)
[2018-08-31] MEDS: FUROSEMIDE 20 MG INJ IV SCH (08:49)
--- NOTE | 2018-08-31 09:18 | PN ---
DATE: 08/31/2018 SUBJECTIVE: The patient is stable. No events overnight. The patient's shortness of breath has impr christie. OBJECTIVE: VITAL SIGNS: Blood pressure is 149/76, pulse 69, temperature 98.8. HEENT: Head is normocephalic. NECK: Supple. HEART: Regular rate. LUNGS: Show diminished breath sounds at the base. ABDOMEN: Soft, nontender to palpation without rebound or guarding. EXTREMITIES: Negative for clubbing, cyanosis, no edema. DERMATOLOGIC: No rashes. MUSCULOSKELETAL: No joint effusion. NEUROLOGIC: No change in exam. MEDICATIONS: Have been reviewed. LABORATORY DATA: Has been reviewed. ASSESSMENT AND PLAN: 1. Nonoliguric acute kidney injury on top of chronic kidney disease with unknown baseline creatinine . Etiology of acute kidney injury secondary to hemodynamics. The patient's renal function is curren tly stable. We will continue current treatment plan, supportive care, renally dose all meds. 2. Acute heart failure. The patient is clinically improved with diuretic therapy. Will continue. Follow up with cardiology. 3. Anemia. Monitor hemoglobin and hematocrit levels. 4. Mineral bone disorder. Monitor calcium and phosphorus levels. 5. Acute respiratory failure secondary to congestive heart failure exacerbation, improving. Continu e current medical management. 6. History of cardiomyopathy, history of ICD placement. 7. Hypertension. 8. Atrial fibrillation. Continue medical management. Dictated By: FELIX ESCOBEDO/NTS Conf#: [id number] DID#: [id number] CC: DEBBIE BENJAMIN MD;*EndCC*
--- NOTE | 2018-08-31 09:55 | RADRPT ---
Echocardiogram Report Patient Name: YOLI ZAVALETAPatient ID: [id number] : 1935 (83y 2m)Study Date: 08/30/2018 1:38:01 PM Gender: Esperanzacession #: [id number] Tech: ESPERANZA Location: [facility] Ref.Physician: DEBBIE BENJAMIN Height(Cm): 173 BSA: 1.78Weight(Kg): 65.8 Quality: AdequateOrder Physician: DEBBIE BENJAMIN Account #: Procedures: Echocardiographic Report: Transthoracic echocardiogram with complete 2D, M-Mode, and doppler examination. Indications: Congestive Heart Failure. Measurements: 2D/M Mode Doppler Measurement Value Normal Range Measurement Value Normal Range LA Volume 207.0 [ 18.0 - 58.0 ] ml AV Peak Mayur 1.1 [ 100.0 - 170.0 ] c m/sec LA Volume Index 116 [ 16 - 34 ] ml/m2 AV Peak PG 5.0 [ 2.0 - 9.0 ] mmHg LVIDd 2D 7.1 [ 4.2 - 5.8 ] cm AI Peak PG 58.0 mmHg LVIDs 2D 6.5 [ 2.5 - 4.0 ] cm AI Peak Mayur 3.8 cm/sec LVPWd 2D 1.3 [ 0.6 - 1.0 ] cm AI PHT 428.0 msec IVSd 2D 1.2 [ 0.6 - 1.0 ] cm LVOT Peak Mayur 0.5 [ 70.0 - 110.0 ] cm /sec AoR Diam 2D 4.5 [ 2.6 - 3.4 ] cm LVOT Peak PG 1.0 [ 2.0 - 6.0 ] mmHg EDV 2D 265.0 [ 62.0 - 150.0 ] ml MV E Peak Mayur 1.0 [ 60.0 - 130.0 ] cm /sec ESV 2D 214.0 [ 21.0 - 61.0 ] ml MV A Peak Mayur 0.2 [ 100.0 - 120.0 ] c m/sec EF 2D 19.2 [ 52.0 - 72.0 ] percent MV E/A 4.0 [ 0.8 - 1.5 ] ratio LA Dimen 2D 5.9 [ 3.0 - 4.0 ] cm MV PHT 32.0 [ 20.0 - 100.0 ] ms ec MV Decel Time 108 [ 104 - 258 ] msec MV Decel Davison 9 Med E` Mayur 0.0 cm/sec MV E/A 4.0 [ 0.8 - 1.5 ] ratio MVA PHT 6.9 [ 2.0 - 4.0 ] cm2 TR Peak Mayur 3.5 [ 100.0 - 280.0 ] c m/sec TR Peak PG 49.0 mmHg PV Peak Mayur 0.4 [ 40.0 - 80.0 ] cm/ sec PV Peak PG 1.0 mmHg RVSP 59.0 [ 10.0 - 36.0 ] mmH g RA Pressure 10.0 mmHg Findings: Left Ventricle: Mild concentric left ventricular hypertrophy. Severe enlargement of left ventricle cavity. Severe global left ventricular systolic dysfunction. Severe left ventricular systolic dysfunction. Ejection fraction is visually estimated at <20 %. Tissue Doppler/Mitral Doppler indices are consistent with restrictive physiology with markedly elevated left atrial pressure (Stage III-IV diastolic dysfunction). E/E'= 26. Right Ventricle: Mild enlargement of right ventricle. Mild right ventricular hypokinesis. Pacemaker right heart. Left Atrium: There is severe enlargement of left atrium appreciated best by HALLIE. LA Dimension 116.00 cm. Right Atrium: There is mild enlargement of right atrium. Atrial Septum: Normal atrial septum. Mitral Valve: Mild mitral annular calcification. Mild to moderate mitral valve regurgitation do to LV dilation. Aortic Valve: No hemodynamically significant aortic stenosis by doppler. Aortic cusps appear mildly calcified. Trileaflet aortic valve. Moderate aortic valve regurgitation. Tricuspid Valve: Normal appearance of the tricuspid valve. Right ventricular systolic pressure is consistent with moderate pulmonary hypertension. The estimated Peak RVSP is 64 mmHg. There is mild to moderate tricuspid regurgitation. Pulmonic Valve: Normal pulmonic valve appearance. There is mild pulmonic regurgitation. Pericardium: Normal pericardium with no significant pericardial effusion. Aorta: Sinus of valsalva is mildly dilated. Sinus of valsalva 4.50 cm. IVC: Dilated IVC without respiratory collapse consistent with elevated right atrial pressure. Pulmonary Artery: Normal pulmonary artery size. Conclusions: Mild concentric left ventricular hypertrophy. Severe enlargement of left ventricle cavity. Severe global left ventricular systolic dysfunction. Severe left ventricular systolic dysfunction. Ejection fraction is visually estimated at <20 %. Tissue Doppler/Mitral Doppler indices are consistent with restrictive physiology with markedly elevated left atrial pressure (Stage III-IV diastolic dysfunction). E/E'= 26. Mild enlargement of right ventricle. Mild right ventricular hypokinesis. Pacemaker right heart. There is severe enlargement of left atrium appreciated best by HALLIE. LA Dimension 116.00 cm. There is mild enlargement of right atrium. Mild mitral annular calcification. Mild to moderate mitral valve regurgitation do to LV dilation. No hemodynamically significant aortic stenosis by doppler. Aortic cusps appear mildly calcified. Trileaflet aortic valve. Moderate aortic valve regurgitation. Normal appearance of the tricuspid valve. Right ventricular systolic pressure is consistent with moderate pulmonary hypertension. The estimated Peak RVSP is 64 mmHg. There is mild to moderate tricuspid regurgitation. Normal pericardium with no significant pericardial effusion. Sinus of valsalva is mildly dilated. Sinus of valsalva 4.50 cm. Dilated IVC without respiratory collapse consistent with elevated right atrial pressure. Electronically Signed By: Milton Myers 2018-08-31 09:54:12 PDT
--- NOTE | 2018-08-31 10:15 | CONS ---
Assessment/Plan Assessment/Plan Hospital Course (Demo Recall) Acute on chronic systolic heart failure- LVEF < 20% global dysfunction which is known, increased cough, agarwal, and fatigue. cxr without sig pulm edema however, cont gentle diuresis/rate control. - lasix 40mg iv x 1 this am, will add bumex 1mg this pm. if good response can cont on bumex tomorrow - cont coreg - cont home losartan/hctz (watch electrolytes/cr) - dig 0.125 qod starting tomorrow Afib - chronic - on coumadin, goal inr 2-3 - cont coreg h/o VT- 2012, no recent episode s/p ICD - cont amio 100mg 3x/week - tele monitoring while in house CKD- chronic baseline cr 1.4 to 1.5. improved today Consultation Date/Type/Reason Admit Date/Time August 29, 2018 at 13:04 Initial Consult Date 08/30/2018 Type of Consult Cardiology Reason for Consultation CHF Requesting Provider: DEBBIE BENJAMIN Date/Time of Note DATE: 08/31/18 TIME: 10:08 24 HR Interval Summary Free Text/Dictation pt seen this morning, with family at bedside. pt reports improved sob, cough. up to bathroom, loose stools still. mild sob with walking, no orthopnea, edema. no cp tele reviewed, afib rate controlled with intermittent pacing Detailed Summary Eyes: no complaints ENT: no complaints Respiratory: shortness of breath Cardiovascular: no complaints Gastrointestinal: no complaints Exam/Review of Systems Exam Vitals Vital Signs Date Temp Pulse Resp B/P (MAP) Pulse Ox O2 O2 Flow FiO2 Time Delivery Rate 08/31/18 69 08:00 08/31/18 98.8 18 149/76 94 Room Air 07:04 (100) 08/29/18 21 11:24 08/29/18 2.0 09:30 Intake and Output 08/30/18 08/30/18 08/31/18 1515:00 23:00 07:00 IntakeIntake Total 1200 ml 300 ml BalanceBalance 1200 ml 300 ml Constitutional: alert, oriented, frail Psych: no complaints, nl mood/affect Head: normocephalic Eyes: nl conjunctiva, nl lids ENMT: nl external ears & nose, nl nasal mucosa & septum Neck: supple, non-tender, jvd (+) Respiratory: clear to auscultation, normal air movement Cardiovascular: nl pulses, diastolic murmur, systolic murmur, other (irregular, normal rate) Gastrointestinal: soft, non-tender Musculoskeletal: nl extremities to inspection Extremities: normal pulses Neurological: CASE BRIEFER II-XII intact, nl mental status, nl speech, nl strength Results Result Diagram: 08/31/18 0615 08/31/18 0615 Results 24hrs Laboratory Tests Test 08/31/18 06:15 White Blood Count 8.1 # Red Blood Count 3.85 L Hemoglobin 11.9 L Hematocrit 35.1 L Mean Corpuscular Volume 91.2 Mean Corpuscular Hemoglobin 30.9 Mean Corpuscular Hemoglobin Concent 33.9 Red Cell Distribution Width 15.2 H Platelet Count 141 Mean Platelet Volume 10.5 H Immature Granulocytes % 0.200 Neutrophils % 82.7 H Lymphocytes % 7.3 L Monocytes % 8.6 Eosinophils % 1.1 Basophils % 0.1 Nucleated Red Blood Cells % 0.0 Immature Granulocytes # 0.020 Neutrophils # 6.7 Lymphocytes # 0.6 L Monocytes # 0.7 Eosinophils # 0.1 Basophils # 0.0 Nucleated Red Blood Cells # 0.0 Sodium Level 136 Potassium Level 4.1 Chloride Level 101 Carbon Dioxide Level 27 Anion Gap 8 Blood Urea Nitrogen 30 H Creatinine 1.59 H Est Glomerular Filtrat Rate mL/min Glucose Level 99 Calcium Level 8.8 Phosphorus Level 3.5 Magnesium Level 1.9 Imaging Imaging cxr report reviewed in emr Medications Medication Current Medications IV Flush (NS 3 ml) 3 ml PER PROTOCOL IV ; Start 08/29/18 at 14:30 Ondansetron HCl (Zofran Inj) 4 mg Q6H PRN IV NAUSEA/VOMITING; Start 08/29/18 at 14:30 Acetaminophen (Tylenol Tab) 650 mg Q6H PRN PO .PAIN 1-3 OR TEMP; Start 08/29/18 at 14:30 Acetaminophen/ Hydrocodone Bitart ([place] (5/325)) 1 tab Q6H PRN PO .MOD PAIN 4- 6; Start 08/29/18 at 14:30 Morphine Sulfate (morphine) 2 mg Q4H PRN IV .SEVERE PAIN 7-10; Start 08/29/18 at 14:30 Docusate Sodium (Colace) 100 mg Q12H PRN PO .CONSTIPATION; Start 08/29/18 at 14:30 Zolpidem Tartrate (Ambien) 5 mg QHS PRN PO .INSOMNIA Last administered on 08/29/18 22:01; Admin Dose 5 MG; Start 08/29/18 at 14:30 Carvedilol (Coreg) 25 mg TID PO Last administered on 08/31/18 08:48; Admin Dose 25 MG; Start 08/29/18 at 21:00 Levothyroxine Sodium (Synthroid) 75 mcg BEFORE BREAKFAST PO Last administered on 08/31/18 05:51; Admin Dose 75 MCG; Start 08/30/18 at 07:00 Potassium Chloride (Klor-Con 10) 10 meq DAILY PO Last administered on 08/31/18 08:48; Admin Dose 10 MEQ; Start 08/30/18 at 09:00 Atorvastatin Calcium (Lipitor) 10 mg HS PO Last administered on 08/30/18 21:18; Admin Dose 10 MG; Start 08/29/18 at 21:00 Magnesium Oxide (Mag-Ox 400) 400 mg DAILY PO Last administered on 08/31/18 08:47; Admin Dose 400 MG; Start 08/30/18 at 09:00 Multivitamins/ Minerals (Theragran-M) 1 tab DAILY PO Last administered on 08/31/18 08:48; Admin Dose 1 TAB; Start 08/30/18 at 09:00 Vitamin B Complex/ Vitamin C (Berocca) 1 cap DAILY PO Last administered on 08/31/18 08:48; Admin Dose 1 CAP; Start 08/30/18 at 09:00 Albuterol/ Ipratropium (Duoneb) 3 ml Q4H RESP THERAPY PRN HHN SHORTNESS OF BREATH; Start 08/29/18 at 14:30 Hydralazine HCl (Apresoline) 10 mg Q4H PRN IV SBP>170; Start 08/29/18 at 14:30 Promethazine HCl (Phenergan Liq) 6.25 mg Q4H PRN PO COUGH Last administered on 08/29/18 18:53; Admin Dose 6.25 MG; Start 08/29/18 at 16:30 Furosemide (Lasix) 40 mg DAILY IV Last administered on 08/31/18 08:49; Admin Dose 40 MG; Start 08/31/18 at 09:00 Warfarin Sodium (Coumadin) 1 mg DAILY@1700 PO Last administered on 08/30/18at 17:29; Admin Dose 1 MG; Start 08/30/18 at 17:07 JOSELUIS LEACH August 31, 2018 10:15
[2018-08-31] MEDS ORDERED: BUMETANIDE 1 MG INJ IV ONE (15:00)
[2018-08-31] MEDS: WARFARIN 2 MG TAB PO SCH (17:35)
--- NOTE | 2018-08-31 17:39 | PN ---
Date/Time of Note Date/Time of Note DATE: 08/31/18 TIME: 17:38 Assessment/Plan VTE Prophylaxis Risk score (from [facility])>0 risk: 4 SCD applied (from [facility]): Yes Pharmacological prophylaxis: heparin Lines/Catheters IV Catheter Type (from [place]): Peripheral IV Urinary Cath still in place: No Assessment/Plan Hospital Course CHF: - Contionue diuresis - neurohormonal blockade - likely dc tomorrow on diuretics Result Diagram: 08/31/18 0615 08/31/18 0615 Results 24hrs Laboratory Tests Test 08/31/18 06:15 White Blood Count 8.1 # Red Blood Count 3.85 L Hemoglobin 11.9 L Hematocrit 35.1 L Mean Corpuscular Volume 91.2 Mean Corpuscular Hemoglobin 30.9 Mean Corpuscular Hemoglobin Concent 33.9 Red Cell Distribution Width 15.2 H Platelet Count 141 Mean Platelet Volume 10.5 H Immature Granulocytes % 0.200 Neutrophils % 82.7 H Lymphocytes % 7.3 L Monocytes % 8.6 Eosinophils % 1.1 Basophils % 0.1 Nucleated Red Blood Cells % 0.0 Immature Granulocytes # 0.020 Neutrophils # 6.7 Lymphocytes # 0.6 L Monocytes # 0.7 Eosinophils # 0.1 Basophils # 0.0 Nucleated Red Blood Cells # 0.0 Sodium Level 136 Potassium Level 4.1 Chloride Level 101 Carbon Dioxide Level 27 Anion Gap 8 Blood Urea Nitrogen 30 H Creatinine 1.59 H Est Glomerular Filtrat Rate mL/min Glucose Level 99 Calcium Level 8.8 Phosphorus Level 3.5 Magnesium Level 1.9 Subjective 24 Hr Interval Summary Free Text/Dictation Breathing comfortably Diuresing well Exam/Review of Systems Exam Vitals Vital Signs Date Temp Pulse Resp B/P (MAP) Pulse Ox O2 O2 Flow FiO2 Time Delivery Rate 08/31/18 63 16:00 08/31/18 98.0 18 139/58 95 Room Air 15:35 (85) 08/29/18 21 11:24 08/29/18 2.0 09:30 Intake and Output 08/30/18 08/30/18 08/31/18 1515:00 23:00 07:00 IntakeIntake Total 1200 ml 300 ml BalanceBalance 1200 ml 300 ml Constitutional: alert, oriented, well developed Psych: no complaints, nl mood/affect Head: normocephalic, atraumatic Eyes: nl conjunctiva, EOMI, nl lids, nl sclera, PERRL ENMT: nl external ears & nose, nl lips & teeth, nl nasal mucosa & septum Neck: supple, non-tender Respiratory: clear to auscultation, normal air movement Cardiovascular: regular rate and rhythm, nl pulses Gastrointestinal: soft, nl liver, spleen, non-tender Musculoskeletal: nl extremities to inspection, nl gait and stance Extremities: normal pulses Neurological: PLASTICS TOOLING ENGINEER II-XII intact, nl mental status, nl speech, nl strength Skin: nl turgor; No rash or lesions Lymph: nl lymph nodes Results Results 24hrs Laboratory Tests Test 08/31/18 06:15 White Blood Count 8.1 # Red Blood Count 3.85 L Hemoglobin 11.9 L Hematocrit 35.1 L Mean Corpuscular Volume 91.2 Mean Corpuscular Hemoglobin 30.9 Mean Corpuscular Hemoglobin Concent 33.9 Red Cell Distribution Width 15.2 H Platelet Count 141 Mean Platelet Volume 10.5 H Immature Granulocytes % 0.200 Neutrophils % 82.7 H Lymphocytes % 7.3 L Monocytes % 8.6 Eosinophils % 1.1 Basophils % 0.1 Nucleated Red Blood Cells % 0.0 Immature Granulocytes # 0.020 Neutrophils # 6.7 Lymphocytes # 0.6 L Monocytes # 0.7 Eosinophils # 0.1 Basophils # 0.0 Nucleated Red Blood Cells # 0.0 Sodium Level 136 Potassium Level 4.1 Chloride Level 101 Carbon Dioxide Level 27 Anion Gap 8 Blood Urea Nitrogen 30 H Creatinine 1.59 H Est Glomerular Filtrat Rate mL/min Glucose Level 99 Calcium Level 8.8 Phosphorus Level 3.5 Magnesium Level 1.9 Medications Medication Current Medications IV Flush (NS 3 ml) 3 ml PER PROTOCOL IV ; Start 08/29/18 at 14:30 Ondansetron HCl (Zofran Inj) 4 mg Q6H PRN IV NAUSEA/VOMITING; Start 08/29/18 at 14:30 Acetaminophen (Tylenol Tab) 650 mg Q6H PRN PO .PAIN 1-3 OR TEMP; Start 08/29/18 at 14:30 Acetaminophen/ Hydrocodone Bitart ([place] (5/325)) 1 tab Q6H PRN PO .MOD PAIN 4- 6; Start 08/29/18 at 14:30 Morphine Sulfate (morphine) 2 mg Q4H PRN IV .SEVERE PAIN 7-10; Start 08/29/18 at 14:30 Docusate Sodium (Colace) 100 mg Q12H PRN PO .CONSTIPATION; Start 08/29/18 at 14:30 Zolpidem Tartrate (Ambien) 5 mg QHS PRN PO .INSOMNIA Last administered on 08/29/18 22:01; Admin Dose 5 MG; Start 08/29/18 at 14:30 Levothyroxine Sodium (Synthroid) 75 mcg BEFORE BREAKFAST PO Last administered on 08/31/18 05:51; Admin Dose 75 MCG; Start 08/30/18 at 07:00 Potassium Chloride (Klor-Con 10) 10 meq DAILY PO Last administered on 08/31/18 08:48; Admin Dose 10 MEQ; Start 08/30/18 at 09:00 Atorvastatin Calcium (Lipitor) 10 mg HS PO Last administered on 08/30/18 21:18; Admin Dose 10 MG; Start 08/29/18 at 21:00 Magnesium Oxide (Mag-Ox 400) 400 mg DAILY PO Last administered on 08/31/18 08:47; Admin Dose 400 MG; Start 08/30/18 at 09:00 Multivitamins/ Minerals (Theragran-M) 1 tab DAILY PO Last administered on 08/31/18 08:48; Admin Dose 1 TAB; Start 08/30/18 at 09:00 Vitamin B Complex/ Vitamin C (Berocca) 1 cap DAILY PO Last administered on 08/31/18 08:48; Admin Dose 1 CAP; Start 08/30/18 at 09:00 Albuterol/ Ipratropium (Duoneb) 3 ml Q4H RESP THERAPY PRN HHN SHORTNESS OF BREATH; Start 08/29/18 at 14:30 Hydralazine HCl (Apresoline) 10 mg Q4H PRN IV SBP>170; Start 08/29/18 at 14:30 Promethazine HCl (Phenergan Liq) 6.25 mg Q4H PRN PO COUGH Last administered on 08/29/18 18:53; Admin Dose 6.25 MG; Start 08/29/18 at 16:30 Furosemide (Lasix) 40 mg DAILY IV Last administered on 08/31/18 08:49; Admin Dose 40 MG; Start 5/27/19 at 09:00 Warfarin Sodium (Coumadin) 1 mg DAILY@1700 PO Last administered on 08/31/18at 17:35; Admin Dose 1 MG; Start 08/30/18 at 17:07 Carvedilol (Coreg) 25 mg BID PO ; Start 08/31/18 at 21:00 Amiodarone HCl (Cordarone) 100 mg ONCE ONCE PO ; Start 09/01/18 at 09:00; Stop 09/01/18 at 09:01 Losartan Potassium (Cozaar) 50 mg DAILY PO ; Start 09/01/18 at 09:00 ROMINA CEHUNG MD August 31, 2018 17:39
[2018-08-31] MEDS: ATORVASTATIN 10 MG TAB PO SCH (21:19)
[2018-09-01] VITALS: BP 117/45; PULSE 49; PULSE 56; RESP 20
[2018-09-01 04:00] VITALS: BP 117/58; PULSE 53; PULSE 55; RESP 18
[2018-09-01] MEDS: LEVOTHYROXINE 75 MCG TAB PO SCH (05:31)
[2018-09-01 07:50] VITALS: BP 118/56; PULSE 52; RESP 18
[2018-09-01 08:01] VITALS: PULSE 60
[2018-09-01] MEDS: POTASSIUM CHLORIDE (SR) 10 MEQ TAB PO SCH (08:41)
[2018-09-01] MEDS: VITAMIN B COMPLEX/VIT C CAP PO SCH (08:41)
[2018-09-01] MEDS: MAGNESIUM OXIDE 400 MG TAB PO SCH (08:41)
[2018-09-01] MEDS: FUROSEMIDE 20 MG INJ IV SCH (08:42)
[2018-09-01] MEDS: MULTIVITAMINS/MINERALS TAB PO SCH (08:42)
[2018-09-01] MEDS ORDERED: LOSARTAN 50 MG TAB PO SCH (09:00)
[2018-09-01] MEDS ORDERED: AMIODARONE 200 MG TAB PO ONE (09:00)
--- NOTE | 2018-09-01 09:11 | PN ---
DATE: 09/01/2018 SUBJECTIVE: The patient is stable, no events overnight. No fevers, chills, nausea or vomiting. Joyce rtness of breath has improved. OBJECTIVE: VITAL SIGNS: Blood pressure is 118/56, respirations 18, pulse 52, temperature 98.3. HEENT: Head is normocephalic. NECK: Supple. HEART: Regular rate. LUNGS: Show diminished breath sounds at the base. ABDOMEN: Soft, nontender to palpation without rebound or guarding. EXTREMITIES: Negative for clubbing, cyanosis, no edema. DERMATOLOGIC: No rashes. MUSCULOSKELETAL: No joint effusion. NEUROLOGIC: No focal deficits. MEDICATIONS: Reviewed. LABORATORY DATA: Reviewed. IMAGING STUDIES: Reviewed. ASSESSMENT AND PLAN: 1. Nonoliguric acute kidney injury on top of chronic kidney disease with unknown baseline creatinine . Etiology of acute kidney injury is secondary to hemodynamics. Renal function is currently stable. Continue current treatment plan, supportive care, renally dose all medications. 2. Acute heart failure, clinically improving. Continue diuretic therapy. Follow up with cardiology . 3. Anemia. Continue to monitor hemoglobin and hematocrit levels. 4. Mineral bone disorder, monitor calcium and phosphorus levels. 5. Acute respiratory failure secondary to congestive heart failure exacerbation, improving. Continu e to monitor. 6. History of cardiomyopathy status post ICD placement. 7. Hypertension. 8. Atrial fibrillation. Continue medical management. Dictated By: FELIX RUBIN DO NR/NTS Conf#: [id number] DID#: [id number] CC: DEBBIE BENJAMIN MD; ROMINA CHEUNG MD; JOSELUIS LEACH MD;*End*
[2018-09-01] MEDS ORDERED: LOSA50TA14 PO (11:31)
[2018-09-01] MEDS ORDERED: LAS20 PO (11:31)
[2018-09-01 11:35] VITALS: BP 124/58; PULSE 54; RESP 19
--- NOTE | 2018-09-01 11:58 | PDOCDIS ---
Discharge Instructions DIAGNOSIS Discharge Diagnosis Acute systolic CHF CKD CONDITION [id number] Patient Condition: [id number] Stable FOLLOW UP/APPOINTMENTS Follow-up Plan See your pallet rectifier in clinic in 1-2 weeks Stop taking Losartan/HCTZ combination pill. Start taking losartan alone and lasix prescription. Monitor your respiratory symptoms and take your weight daily. Communicate any changes in your symptoms or significant weight changes to your pallet rectifier ROMINA Grajeda MD September 01, 2018 11:58
[2018-09-01 12:01] VITALS: PULSE 60
--- NOTE | 2018-09-01 15:55 | DS ---
Date/Time of Note Date/Time of Note DATE: 09/01/18 TIME: 15:54 Discharge Summary Admission/Discharge Info Admit Date/Time August 29, 2018 at 13:04 Discharge Date/Time Discharge Diagnosis Acute systolic CHF CKD Patient Condition: Stable Hospital Course Found to be in acute systolic CHF exacerbation, mild symptoms of pulmonary congestion He was treated wtih IV diuretics and improved quickly He was discharged on lasix 20 mg PO BID and told to follow up as soon as possible with his head host/hostess in clinic HCTZ was stopped Home Meds Reported Medications Losartan-Hydrochlorothiazide (Losartan-HCTZ) Unknown Strength Tab, PO DAILY, TAB PT ONLY KNOW THE HCTZ IS 12.5 BUT NOT WHAT THE MG OF LOSARTAN IS 08/29/18 Magnesium Oxide (Magnesium) 250 Mg Tablet, 250 MG PO DAILY, TAB 08/29/18 Multivit-Min/FA/Lycopen/Lutein (Centrum Silver Men Tablet) 1 Each Tablet, 1 EACH PO DAILY, TAB 08/29/18 Vitamin B Complex (Super B-50 Complex) 1 Each Capsule, 1 EACH PO DAILY, CAP 08/29/18 Levothyroxine Sodium* (Levoxyl*) 75 Mcg Tablet, 75 MCG PO BEFORE BREAKFAST, #30 TAB 08/29/18 Warfarin Sodium* (Coumadin*) 2 Mg Tablet, 2 MG PO MON,FRI, TAB 08/29/18 Warfarin Sodium* (Coumadin*) 1 Mg Tablet, 1 MG PO SUN,TUE,WED,THUR,SAT, TAB 08/29/18 Lovastatin (Lovastatin) 40 Mg Tablet, 40 MG PO HS, TAB 08/29/18 Allopurinol* (Allopurinol*) 300 Mg Tablet, 300 MG PO DAILY, TAB 08/29/18 Potassium Chloride* (K-Dur*) 10 Meq Tab.prt.sr, 10 MEQ PO DAILY, TAB 08/29/18 Carvedilol* (Carvedilol*) 25 Mg Tablet, 25 MG PO TID, #60 TAB 08/29/18 Follow-up Plan See your head host/hostess in clinic in 1-2 weeks Stop taking Losartan/HCTZ combination pill. Start taking losartan alone and lasix prescription. Monitor your respiratory symptoms and take your weight daily. Communicate any changes in your symptoms or significant weight changes to your head host/hostess [facility] Primary Care Provider Not On Staff Doctor Pending Labs Laboratory Tests Test 09/01/18 07:57 09/01/18 14:52 Digoxin Level 2.2 ng/ml (1.0-2.0) Prothrombin Time 24.1 Sec (11.9-14.9) Prothrombin Time Ratio 1.9 INR International Normalized Ratio 2.15 Sodium Level 135 mmol/L (135-144) Potassium Level 4.1 mmol/L (3.5-5.1) Chloride Level 96 mmol/L (97-110) Carbon Dioxide Level 32 mmol/L (21-31) Anion Gap 7 (5-13) Blood Urea Nitrogen 33 mg/dl (7-20) Creatinine 1.50 mg/dl (0.61-1.24) Est Glomerular Filtrat Rate mL/min mL/min (>60) Glucose Level 103 mg/dl (70-220) Calcium Level 8.9 mg/dl (8.4-10.2) ROMINA CHUENG MD September 01, 2018 15:55
--- NOTE | 2018-09-02 09:03 | RADRPT ---
Vent Rate: 66 bpm RR Interval: 944 msec GA Interval: [id number] msec QRS Duration: 154 msec QT Interval: 410 msec QTC Interval: 422 msec P-R-T [place]: [id number] - 248 - 62 degrees Atrial fibrillation. Nonspecific IVCD with LAD...QRSd >115mS & LAD Consider left ventricular hypertrophy...(S V1/V2+R V5/V6) >3.50mV Abnormal T, consider ischemia, lateral leads...T <-0.20mV, I aVL V5 V6 Electronically Signed By: Brady Stevenson
== END 2018-09-01 16:53 | disposition home or self-care (01) | DRG 291 ==
LOC: E/R 08:55 → TEL 13:04
PROVIDERS: ADMIT Internal Medicine; ATTEND Internal Medicine
DX: I13.0 Hypertensive heart and chronic kidney disease with heart failure and stage 1 through stage 4 chronic kidney disease, or unspecified chronic kidney disease (principal); I50.23 Acute on chronic systolic (congestive) heart failure; J96.00 Acute respiratory failure, unspecified whether with hypoxia or hypercapnia; N17.9 Acute kidney failure, unspecified; N18.9 Chronic kidney disease, unspecified; D63.1 Anemia in chronic kidney disease; I42.9 Cardiomyopathy, unspecified; E03.9 Hypothyroidism, unspecified; J44.9 Chronic obstructive pulmonary disease, unspecified; D64.9 Anemia, unspecified; I48.2 Chronic atrial fibrillation; Z79.01 Long term (current) use of anticoagulants; Z95.810 Presence of automatic (implantable) cardiac defibrillator
CPT/HCPCS: 71045; 76775; 80048; 80053; 80061; 80162; 81001; 81003; 82043; 82150; 83036; 83690; 83735; 83880; 84100; 84155; 84300; 84436; 84479; 84484; 85025; 85610; 85730; 87075; 87086; 93005; 93306; 94644; 94645; 97116; 97162; 97530; J1940; J7040